=== PATIENT | female | born 1950 | race Caucasian/White ===

== ENCOUNTER → 2016-12-18 | Outpatient (CLI) | payer OTHER ==
--- NOTE | ~2016-12-18 | MY29 ---
[facility] A Service of [facility] RADIOLOGY TEXT RESULTS PATIENT: ANDREW NEWMAN LOCATION: [facility] : 54 UNIT #: [id number] AGE: [address]: Megan Molina MD SEX: F ORDER DR: [id number] [facility] [address] [place], [place] [address] [id number] O MR#: [id number] Acc #: [id number] NAME: ANDREW NEWMAN : 1950 SEX: F STUDY DATE/TIME: 12/18/2016 12:07 UNIT: [facility] ROOM: STUDY DESCRIPTION: MY MAIDA SCREENING W/ CAD BILAT Attending Physician: Megan Molina M.D. Ordering Physician: Megan Molina M.D. Primary Care Physician: Megan Molina M.D. MEDICAL IMAGING REPORT This report is preliminary unless electronic signature is present EXAM Digital screening mammogram, 12/18/2016, [facility] HISTORY 66-year-old woman; no risk elevation. Annual screening. COMPARISON Comparison mammograms date to 12/10/2006 with most recent screening comparison 11/25/2015. FINDINGS Digital imaging of each breast was completed utilizing a two-view examination of each breast in craniocaudal and mediolateral-oblique projections. Review and interpretation of digital mammograms include a second review in conjunction with FDA-approved CAD device. There is a normal parenchymal presentation bilaterally consistent with the patient's age. There are no breast masses imaged and no parenchymal asymmetry is visualized. There are no suspicious microcalcifications and I see no focal architectural disturbance. NOTE: Breast parenchyma is fatty replaced IMPRESSION Negative screening digital mammogram. One-year followup recommended. Patients over the age of 40 are entered into a reminder system with target due date for the next mammogram. A result letter will also be sent to the patient. BIRADS: 1 Negative [facility] A Service of [facility] RADIOLOGY TEXT RESULTS PATIENT: ANDREW NEWMAN LOCATION: [facility] : 54 UNIT #: [id number] AGE: [address]: Megan Molina MD SEX: F ORDER DR: Dictated by... Enoc Galvan M.D. THIS IS AN ELECTRONICALLY VERIFIED REPORT Enoc Galvan M.D. at 12/20/2016 1:44 PM DARY/risa TD: 12/18/2016 15:48 JOB #: [id number] MEDICAL IMAGING REPORT Page 1 of 1 COPY
== END | disposition home or self-care (01) ==
LOC: CWCC 11:40
DX: Z12.31 Encounter for screening mammogram for malignant neoplasm of breast (principal)
CPT/HCPCS: G0202